=== PATIENT | female | born 1940 | race Caucasian/White ===

== ENCOUNTER 2019-07-19 08:44 | Observation (INO) | payer MEDICARE, BC ==
[~2019-07-19] VITALS: Ht 154.9 cm; Wt 83.1 kg
[~2019-07-19 08:44] MED LIST: ALPR0.5T6 PO; ASPI-817 ORAL; ATOR20TA17 PO; ATOR40TA68 ORAL; CELE-54 ORAL; CLON-379 PO; DIPH25CA42 ORAL; ERGO500013 ORAL; EXEM25TA ORAL; EXEM25TA5 PO; LEVEM SC; NEBI10TA2 PO; NOV SC; OLME1TAB37 ORAL; RANI150C11 PO; RANI150T5 ORAL; TRIBENZOR PO
[2019-07-19] MEDS ORDERED: ASPIRIN 325 MG TAB PO STA (09:21)
[2019-07-19] MEDS ORDERED: NITROGLYCERIN 2% 1 GM OINT PKT TD STA (09:21)
[2019-07-19] MEDS ORDERED: ONDANSETRON 4 MG INJ IV PRN ×2 (13:30→16:30)
[2019-07-19 15:31] VITALS: Ht 154.9 cm; Wt 83.1 kg
[2019-07-19 15:41] VITALS: BP 138/65; PULSE 72; RESP 18
[2019-07-19] MEDS ORDERED: ALBUTEROL/IPRATROPIUM (NEB) 3 ML AMP HHN PRN (16:30)
[2019-07-19] MEDS ORDERED: MAGNESIUM HYDROXIDE 30ML CUP PO PRN (16:30)
[2019-07-19] MEDS ORDERED: LORAZEPAM 2 MG INJ IV PRN (16:30)
[2019-07-19] MEDS ORDERED: NITROGLYCERIN (SL) 0.4 MG TAB SL PRN (16:30)
[2019-07-19] MEDS ORDERED: ACETAMINOPHEN 325 MG TAB PO PRN ×2 (16:30→17:00)
[2019-07-19] MEDS ORDERED: hydrALAzine 20 MG INJ IV PRN (16:30)
[2019-07-19] MEDS ORDERED: DOCUSATE SODIUM 100 MG CAP PO PRN (16:30)
[2019-07-19] MEDS ORDERED: NACL 0.9% 3 ML SYG IV SCH (16:30)
[2019-07-19] MEDS ORDERED: HYDROCODONE/APAP (5/325) TAB PO PRN (16:30)
[2019-07-19] MEDS ORDERED: GLUCOSE GEL 15 GRAM TUBE BUCCAL PRN (17:00)
[2019-07-19] MEDS ORDERED: INSULIN ASPART [NOVOLOG] 3 ML PEN SC SCH (17:00)
[2019-07-19] MEDS ORDERED: GLUCOSE GEL 15 GRAM TUBE PO PRN ×2 (17:00)
[2019-07-19] MEDS ORDERED: GLUCAGON 1 MG INJ IM PRN (17:00)
[2019-07-19] MEDS ORDERED: DEXTROSE 50% 50 ML SYRINGE IV PRN ×2 (17:00)
[2019-07-19] MEDS: INSULIN ASPART [NOVOLOG] 3 ML PEN SC SCH ×2 (17:31→20:45)
[2019-07-19] MEDS: SOD CHLORIDE 0.45% 1,000 ML IV SCH (18:15)
[2019-07-19 20:06] VITALS: BP 136/64; PULSE 67; RESP 18
[2019-07-19] MEDS: RANITIDINE 150 MG TAB PO SCH (20:44)
[2019-07-19] MEDS ORDERED: INSULIN GLARGINE [LANTus] (100 UNITS/ML) SYG SC SCH (21:00)
[2019-07-20 00:13] VITALS: BP 107/54; PULSE 68; RESP 16
[2019-07-20] MEDS ORDERED: ACCU-CHEK XX SCH (02:00)
[2019-07-20 04:31] VITALS: BP 125/60; PULSE 63; RESP 18
[2019-07-20] MEDS: SOD CHLORIDE 0.45% 1,000 ML IV SCH ×2 (05:47→08:19)
[2019-07-20 07:10] VITALS: BP 139/64; PULSE 62; RESP 20
[2019-07-20] MEDS: INSULIN ASPART [NOVOLOG] 3 ML PEN SC SCH ×2 (08:00→12:16)
[2019-07-20] MEDS: AMLODIPINE 10 MG TAB PO SCH ×2 (08:16→09:00)
[2019-07-20] MEDS: RANITIDINE 150 MG TAB PO SCH (08:18)
[2019-07-20] MEDS ORDERED: NON-FORMULARY/PATIENT OWN MED (Olmesartan-Amlodipine-HCTZ (Tribenzor) 1 TAB) ORAL SCH (09:00)
[2019-07-20] MEDS ORDERED: LOSARTAN 50 MG TAB PO SCH (09:00)
[2019-07-20] MEDS ORDERED: ATORVASTATIN 40 MG TAB PO SCH (09:00)
[2019-07-20] MEDS ORDERED: ALPRAZOLAM 0.5 MG TAB PO SCH (09:00)
[2019-07-20] MEDS ORDERED: HYDROCHLOROTHIAZIDE 25 MG TAB PO SCH (09:00)
[2019-07-20] MEDS ORDERED: NEBIVOLOL 5 MG TAB PO SCH (09:00)
[2019-07-20] MEDS ORDERED: ASPIRIN (EC) 325 MG TAB PO SCH (09:00)
[2019-07-20 10:47] VITALS: BP 140/65; PULSE 82
[2019-07-20 11:10] VITALS: BP 130/61; PULSE 74; RESP 20
[2019-07-20] MEDS ORDERED: MAGNESIUM SULFATE 2 GM/50 ML 50 ML IVPB ONE (12:00)
[2019-07-20] MEDS ORDERED: [UNRECOGNIZED DRUG - REMARK] XX SCH (12:30)
== END 2019-07-20 16:00 | disposition home health service (06) ==
LOC: E/R 08:44 → 6WM 13:17 → EDBEDREQ 13:55
PROVIDERS: ADMIT Hospitalist; ATTEND Hospitalist
DX: R07.9 Chest pain, unspecified (principal); I10 Essential (primary) hypertension; E78.00 Pure hypercholesterolemia, unspecified; E11.9 Type 2 diabetes mellitus without complications; Z79.82 Long term (current) use of aspirin; I25.10 Atherosclerotic heart disease of native coronary artery without angina pectoris; Z95.5 Presence of coronary angioplasty implant and graft; Z79.4 Long term (current) use of insulin
CPT/HCPCS: 71045; 80048; 80061; 82550; 82553; 82962; 83036; 83735; 84100; 84439; 84443; 84484; 85025; 93005; 93306; 96374; 97161; 97167; 99285; G0378; J1815; J3475